=== PATIENT | female | born 1960 | race Caucasian/White ===

== ENCOUNTER 2018-10-05 10:38 | Emergency (ER) | payer OTHER ==
[~2018-10-05] VITALS: Ht 162.6 cm; Wt 84.4 kg
[2018-10-05] MEDS ORDERED: LEVOTHYROXINE100 MCG PO (10:53)
[2018-10-05] MEDS ORDERED: OMEPRAZOLE20 M2 PO (10:53)
--- NOTE | 2018-10-06 00:52 | EKG ---
[facility] [address] [facility] [place] [address] Signed Sinus tachycardia Otherwise normal ECG No previous ECGs available Confirmed by ROSEMARIE BOBBY MD ([id number]) on 10/06/2018 12:52:18 AM Electronically Signed By: ROSEMARIE BOBBY MD 10/06/18 0052 PATIENT NAME: DIANE AGUDELO PAKO Electrocardiogram DATE OF : 60 PHYSICIAN: ROSEMARIE BOBBY MD REPORT #: [id number] REPORT IS CONFIDENTIAL AND NOT TO BE RELEASED WITHOUT AUTHORIZATION
--- NOTE | 2018-10-06 00:53 | EKG ---
[facility] [address] [facility] [place] [address] Signed Normal sinus rhythm Nonspecific ST abnormality Abnormal ECG When compared with ECG of 05-OCT-2018 10:47, (Unconfirmed) No significant change was found Confirmed by ROSEMARIE BOBBY MD ([id number]) on 10/06/2018 12:53:31 AM Electronically Signed By: ROSEMARIE BOBBY MD 10/06/18 0053 PATIENT NAME: DIANE AGUDELO Electrocardiogram DATE OF : 60 PHYSICIAN: ROSEMARIE BOBBY MD REPORT #: [id number] REPORT IS CONFIDENTIAL AND NOT TO BE RELEASED WITHOUT AUTHORIZATION
== END 2018-10-05 17:23 | disposition short-term general hospital (02) ==
LOC: ED 10:38
DX: I21.4 Non-ST elevation (NSTEMI) myocardial infarction (principal); E03.9 Hypothyroidism, unspecified; Z79.899 Other long term (current) drug therapy
CPT/HCPCS: 71045; 80053; 84484; 85025; 93005; 93010; 96372; 99291; J1650

== ENCOUNTER 2020-03-21 06:55 | Day surgery (SDC) | payer OTHER ==
[~2020-03-21] VITALS: Ht 160 cm; Wt 80.9 kg
[~2020-03-21 06:55] MED LIST: ADULT ASPIRIN R81 MG PO; CALCIUM 600 +1 EA14 PO; LEVOTHYROXINE100 MCG PO; LIPITOR80 MG GT; OMEPRAZOLE20 M2 PO; VITAMIN B-121000 MC3 PO; VITAMIN D325 MC2 PO
--- NOTE | 2020-03-21 09:51 | NUR ---
03/21/20 0951 Kelli Oliver 0944- PT ARRIVES TO PACU NONAROUSABLE TO NOXIOUS STIMULI. RESP EVEN AND UNLABORED. OXYGEN SAT HIGH 90'S TO 100% ON 3L VIA NC. SEGUNDO MACHUCA CRNA AWARE OF PT'S BP OF 84/51. FLUIDS ARE WIDE OPEN.
--- NOTE | 2020-03-21 12:21 | OR ---
[facility] [address] [place], [place] [address] Signed DATE OF OPERATION: 03/21/2020 SURGEON: Tyrone Moses MD DATE OF PROCEDURE: 03/21/2020 PREOPERATIVE DIAGNOSES: 1. Heartburn. 2. Screening. POSTOPERATIVE DIAGNOSES: 1. Moderate sized hiatal hernia. 2. Mild gastritis. 3. A 4 mm rectal polyp at 6 cm. 4. 4 mm colon polyp at 80 cm. PROCEDURES: 1. EGD with CLOtest and biopsies of the antrum and GE junction. 2. Colonoscopy without biopsy. ESTIMATED BLOOD LOSS: None. INDICATIONS: Diane is a 59-year-old lady, asked to see me for upper and lower endoscopy. She actually came to us in August of 2018. Unfortunately, she suffered a heart attack and ended up with a coronary angiogram. She did not need any stenting. She has been on aspirin therapy. She returns now for her upper and lower endoscopy. If she discontinues her omeprazole, she said she is quite miserable with the heartburn. She gives no lower GI complaints. There is no family history of colon cancer or polyps. In the office I had given her pamphlets on upper and lower endoscopy. We reviewed the nature of the two tests along with the risks including, but not limited to gas bloating, crampy abdominal pain, bleeding, perforation requiring surgery, and missed diagnosis. We also discussed the need for IV conscious sedation. Given her recent heart attack and also the vitreous detachment of her right eye, she cannot tolerate swings in her blood pressure. Consequently, we asked that an anesthesia provider help us with increased monitoring sedation with propofol. She had expressed understanding and wished to proceed. Electronically Signed By: TYRONE MOSES MD 03/21/20 1221 PATIENT NAME: DIANE AGUDELO OPERATIVE REPORT DATE OF : 60 REPORT #: [id number] PHYSICIAN: TYRONE MOSES MD PCP: KEVIN LOREDO REPORT IS CONFIDENTIAL AND NOT TO BE RELEASED WITHOUT AUTHORIZATION [facility] [address] [place], [place] [address] Signed DESCRIPTION OF PROCEDURE: Diane was taken into our endoscopy suite and placed in the supine semi-recumbent position. She was given IV sedation with propofol per our nurse grounds maintenance worker. The posterior oropharynx was anesthetized with lidocaine spray. A bite block was utilized for the case. The adult gastroscope was introduced and advanced out into the third portion of the duodenum under direct visualization of camera without difficulty. The duodenum and pyloric channel were unremarkable. Her stomach had very mild erythematous changes throughout. We can see the typical benign polyps in the proximal half of her stomach while on her proton pump inhibitor. We took a biopsy out of the antrum for CLOtest as well as pathologic review. Upon retroflexion of scope, she has a moderate-sized hiatal hernia. However, she was coughing and really could not get any good measurements. The scope was withdrawn up through the area of the GE junction, which was compliant without stricture. She has mild disruption to her Z-line. We went ahead and took a biopsy along the edge of the Z-line for pathologic review. No Velazquez's mucosa, no distal esophagitis. The middle and upper esophagus were unremarkable. After this, the gas was suctioned out and the gastroscope removed. Diane tolerated the procedure quite well. Diane was rotated into the left lateral decubitus position. She was maintained on IV sedation with the propofol per our nurse grounds maintenance worker. A digital rectal exam was performed and this was unremarkable. The adult colonoscope was introduced and advanced under direct visualization of the camera without difficulty. We could easily see the appendiceal orifice and the ileocecal valve. Unfortunately, she had a couple areas of heavily particulate stool matter that we could not irrigate and suction out without clogging our scope. The longus area was in the left colon. We did slowly withdrawn the scope. The above two mentioned polyps were easily removed with the help of hot biopsy forceps. We did not see any diverticula. Once in the rectum, the scope had been retroflexed and there was no additional pathology noted above the anal canal. After this, the gas was suctioned out and the colonoscope removed. Diane tolerated the procedure quite well. RECOMMENDATIONS: I will see Diane back in my office in 7 to 14 days to review her results. She can resume her aspirin in one week. Tyrone Moses MD ALB/MODL Electronically Signed By: TYRONE MOSES MD 03/21/20 1221 PATIENT NAME: DIANE AGUDELO OPERATIVE REPORT DATE OF : 60 REPORT #: [id number] PHYSICIAN: TYRONE MOSES MD PCP: KEVIN LOREDO REPORT IS CONFIDENTIAL AND NOT TO BE RELEASED WITHOUT AUTHORIZATION [address] [address] Signed /[id number] cc: SRINI Guerrero Copies: KEVIN LOREDO ~ Electronically Signed By: TYRONE MOSES MD 03/21/20 1221 PATIENT NAME: DIANE AGUDELO PAKO OPERATIVE REPORT DATE OF : 60 REPORT #: [id number] PHYSICIAN: TYRONE MOSES MD PCP: KEVIN LOREDO REPORT IS CONFIDENTIAL AND NOT TO BE RELEASED WITHOUT AUTHORIZATION
--- NOTE | 2020-03-24 11:31 | PATH ---
[facility] [address] [place], [place] [address] Signed SPECIMEN(S): A ANTRUM/PYLORUS SPECIMEN(S): B GE JUNCTION SPECIMEN(S): C RECTAL POLYP AT 6 CM SPECIMEN(S): D COLON POLYP AT 80 CM SPECIMEN SOURCE: A. ANTRUM/PYLORUS B. GE JUNCTION C. RECTAL POLYP AT 6 CM D. COLON POLYP AT 80 CM CLINICAL HISTORY: GERD, screening colonoscopy. Postop: Mild gastritis, hiatal hernia, rectal and colon polyp. MICROSCOPIC DESCRIPTION: Histologic sections of all submitted blocks are examined by light microscopy. These findings, together with the gross examination, support the pathologic diagnosis. FINAL PATHOLOGIC DIAGNOSIS: A. Antrum/pylorus, biopsy: - Gastric type mucosa with focal sight chronic inflammation. - Negative for evidence of Helicobacter organisms on routine HE stained sections. B. GE junction, biopsy: - Benign esophageal mucosa, negative for increased epithelial eosinophils. - Negative for glandular mucosa. C. Rectal polyp at 6 cm, biopsy: - Polypoid colonic mucosa with slight hyperplastic features (two fragments). D. Rectal polyp at 80 cm, biopsy: - Polypoid colonic mucosa with focal slight mucosal active inflammation, nonspecific. JVR:cml:[id number] GROSS DESCRIPTION: Four specimens are received in four containers, labeled "VS." A. The specimen, labeled "VS," and designated on the requisition "antrum/pylorus biopsy," is received in formalin and consists of one fragment of pink-genao tissue (0.6 x 0.2 x 0.1 cm). The specimen is submitted entirely in cassette (A1). B. The specimen, labeled "VS," and designated on the requisition "EG junction PATIENT NAME: DIANE AGUDELO PATHOLOGY DATE OF : 60 REPORT #: [id number] PHYSICIAN: [facility] PCP: KEVIN LOREDO REPORT IS CONFIDENTIAL AND NOT TO BE RELEASED WITHOUT AUTHORIZATION [facility] [address] [place], [place] [address] Signed biopsy," is received in formalin and consists of two fragments of white-genao tissue (2.5 x 0.2 x 0.2 cm in aggregate). The specimen is submitted entirely in cassette (B1). C. The specimen, labeled "VS," and designated on the requisition "rectal polypectomy at 6 cm," is received in formalin and consists of two fragments of pink-genao tissue and one fragment of brown-genao fecal debris (0.4 x 0.2 x 0.2 cm in aggregate). The specimen is submitted entirely in cassette (C1). D. The specimen, labeled "VS," and designated on the requisition "colon polypectomy at 80 cm," is received in formalin and consists of one fragment of pink-genao tissue (0.3 x 0.2 x 0.2 cm). The specimen is submitted entirely in cassette (D1). AC (under the direct supervision of a pathologist) The Gross Description was prepared using a voice recognition system. The report was reviewed for accuracy; however, sound-alike word errors, addition and/or deletions may occur. If there is any question about this report, please contact Client Services. PERFORMING LABORATORY: The technical component was performed by [employer], [address] [place] [id number] (School Bus Monitor: Angie Pink MD; CLIA# [id number]). Professional interpretation was performed by [employer], [facility], [address] [place] [address], [place] [address] (School Bus Monitor: Malik Rai M.D.). Diagnostician: Malik Rai MD Pathologist Electronically Signed 03/24/2020 Copies: ~ PATIENT NAME: DIANE AGUDELO PATHOLOGY DATE OF : 60 REPORT #: [id number] PHYSICIAN: [facility] PCP: KEVIN LOREDO REPORT IS CONFIDENTIAL AND NOT TO BE RELEASED WITHOUT AUTHORIZATION
== END 2020-03-21 10:25 | disposition home or self-care (01) ==
LOC: OPS 06:55 → DS 06:55 → OPS 08:15 → DS 08:15 → OPS 10:25
PROVIDERS: ATTEND Colon & Rectal Surgery
PROC: 0DBP8ZZ Excision of Rectum, Via Natural or Artificial Opening Endoscopic (ICD-10-PCS; 2020-03-21)
PROC: 0DBE8ZZ Excision of Large Intestine, Via Natural or Artificial Opening Endoscopic (ICD-10-PCS; 2020-03-21)
PROC: 0DB48ZX Excision of Esophagogastric Junction, Via Natural or Artificial Opening Endoscopic, Diagnostic (ICD-10-PCS; principal; 2020-03-21 08:15)
PROC: 0DB78ZX Excision of Stomach, Pylorus, Via Natural or Artificial Opening Endoscopic, Diagnostic (ICD-10-PCS; 2020-03-21 08:15)
DX: Z12.11 Encounter for screening for malignant neoplasm of colon (principal); K62.89 Other specified diseases of anus and rectum; K29.50 Unspecified chronic gastritis without bleeding; K44.9 Diaphragmatic hernia without obstruction or gangrene; I25.2 Old myocardial infarction; K21.9 Gastro-esophageal reflux disease without esophagitis; E03.9 Hypothyroidism, unspecified; Z79.899 Other long term (current) drug therapy; Z79.82 Long term (current) use of aspirin
CPT/HCPCS: 86677; J2001; J2704; J7121